=== PATIENT | male | born 1990 | race Hispanic/Latino ===

== ENCOUNTER 2017-06-13 13:02 | Emergency (ER) | payer BC, SELFPAY ==
[2017-06-13] MEDS ORDERED: Bacitracin Zinc 1 Packet ONE (13:22)
== END 2017-06-13 13:27 | disposition home or self-care (01) ==
LOC: BURERS 13:02
DX: S61.512A Laceration without foreign body of left wrist, initial encounter (principal); W26.0XXA Contact with knife, initial encounter
CPT/HCPCS: 12001